=== PATIENT | female | born 1945 | race Caucasian/White ===

== ENCOUNTER → 2019-09-19 10:28 | Outpatient (BNVA) | payer MEDICARE, OTHER, SELFPAY | PROVIDERS: Visit Provider Nurse Practitioner Family | DX: D64.9 Anemia, unspecified (principal); E55.9 Vitamin D deficiency, unspecified; E78.2 Mixed hyperlipidemia; R53.83 Other fatigue; I10 Essential (primary) hypertension; Z79.899 Other long term (current) drug therapy; B37.3 Candidiasis of vulva and vagina | CPT/HCPCS: 80053; 80061; 81001; 82306; 83036; 83550; 84443; 85025 ==

== ENCOUNTER → 2020-10-02 11:28 | Outpatient (BNVA) | payer MEDICARE, OTHER, SELFPAY | PROVIDERS: PCP Nurse Practitioner Family; Visit Provider Nurse Practitioner Family | DX: E78.2 Mixed hyperlipidemia (principal); I10 Essential (primary) hypertension; E53.8 Deficiency of other specified B group vitamins; D64.9 Anemia, unspecified; M19.90 Unspecified osteoarthritis, unspecified site; E55.9 Vitamin D deficiency, unspecified; E03.9 Hypothyroidism, unspecified; Z79.899 Other long term (current) drug therapy | CPT/HCPCS: 80053; 80061; 81003; 82306; 82607; 82728; 83036; 83550; 83921; 84443; 85025; 85651; 86140; 86431 ==

== ENCOUNTER → 2021-03-16 10:59 | Outpatient (BNVA) | payer MEDICARE, OTHER, SELFPAY | PROVIDERS: PCP Nurse Practitioner Family; Visit Provider Nurse Practitioner Family | DX: D64.9 Anemia, unspecified (principal); E03.9 Hypothyroidism, unspecified; I10 Essential (primary) hypertension | CPT/HCPCS: 80053; 82607; 84443; 85025 ==

== ENCOUNTER 2021-05-18 08:32 | Outpatient (CLI) | payer MEDICARE, OTHER, SELFPAY ==
--- NOTE | 2021-05-18 09:19 | NMCV_ITS ---
NM nallely perf SPECT r/s* [id number] Irma August Age: 75 Gender: F : 1945 Exam Date: 05/18/2021 09:56 Ordering Phys: Rosalia Garcia MD ([email or web address]) Technologist: GODWIN Valdes Exam Location: [facility] Indications: SHORTNESS OF BREATH STRESS TEST [facility] IMAGE PROTOCOL Rest/Stress 1 Exercise Day Radiopharmaceutical Dose (mCi) Administration Site Administered by Rest: Tc-99m 10.6 IV GODWIN Valdes Sestamibi Stress:Tc-99m 32.7 IV GODWIN Hemphill Sestamibi Rest: 18-May-2021 60 Discovery 630 Stress: 18-May-2021 15 Discovery 630 Radiopharmaceutical was injected at 100% maximum heart rate. Images obtained in supine and prone position. SPECT RESULTS Technical Quality: Excellent Raw Data Analysis: Normal Image Corrections: No attenuation or motion correction applied Summed Stress Score: 0 Summed Rest Score: 0 Summed Difference Score: 0 PERFUSION FINDINGS Fairly uniform myocardial tracer uptake with no significant perfusion abnormality FUNCTIONAL RESULTS (calculated via Gated SPECT) Stress EDV (mL):34 TID: 0.55 FUNCTIONAL FINDINGS: Normal LV ejection fraction IMPRESSIONS 1. Unremarkable myocardial perfusion imaging 2. Normal LV ejection fraction 3. LV wall motion analysis revealing no gross wall motion abnormalities 4. Normal LV volume No significant coronary ischemia, based on the above findings Dr Rosalia Garcia MD [facility] (Electronically Signed) Final Date: 19 May 2021 00:32 S
--- NOTE | 2021-05-18 09:19 | ECG_ITS ---
[facility] Test Date: 2021-05-18 Pat Name: Irma August Department: Room: Gender: Female Sheet Writer: Geovanna Otero : 1945 Requested By: Rosalia Garcia Order Number: [id number] Bella MD: Rosalia Garcia M.D. Interpretive Statements NAME OF STUDY: EXERCISE SESTAMIBI STRESS TEST INDICATION: Chest Pain, PROCEDURE: The baseline electrocardiogram showed [normal sinus rhythm with nonspecific T wave changes. At the baseline, the patient's blood pressure was 167/92 mm Hg with a heart rate of 80/min The patient exercised for 4 minutes and 56 seconds on a standard Dwight protocol. Patient attained a maximum heart rate of 150 beats per minute(102 % of the maximum predicted heart rate) with a blood pressure at the peak exercise of 156/92 mm Hg. The EKG at the peak exercise revealed no significant changes. Patient did not have any chest pain or any significant arrhythmis with the exercise Sestamibi was injected 1 minute prior to the peak exercise During the recovery phase, there were no new changes. Blood pressure at the end of the recovery phase was 152/81 mm Hg with a heart rate of 89 per minute. CONCLUSION: 1. No significant EKG changes with the [treadmill exercise 2. No exercise-induced chest pain or cardiac arrhythmia 3. Impaired exercise tolerance, attained a maximum of 7.0 METs 4. Sestamibi/Sestamibi perfusion results pending; see separate report. Electronically Signed On 05-22-2021 10:36:42 AD OPERATIONS ASSOCIATE by Rosalia Garcia M.D. [id number]
[2021-05-18 09:20] VITALS: BMI 34.7
[2021-05-18 11:16] VITALS: BP 152/81; PULSE 89
--- NOTE | 2021-05-18 12:00 | USCV_ITS ---
Irma August Age: 75 Gender: F : 1945 Exam Date: 05/18/2021 09:24 Ordering Phys: Rosalia Garcia MD ([email or web address]) Technologist: Azul Lepe Exam Location: [facility] Indication: DYSPNEA BP: 121 / 85 HR: 70 Rhythm: Sinus Technical Quality: Technically difficult study MEASUREMENTS (Male / Female) Normal Values 2D ECHO LV Diastolic Diameter PLAX 3.0 cm 4.2 - 5.9 / 3.9 - 5.3 cm LV Systolic Diameter PLAX 2.0 cm IVS Diastolic Thickness 1.2 cm 0.6 - 1.0 / 0.6 - 0.9 cm IVS Systolic Thickness 1.7 cm LVPW Diastolic Thickness 1.1 cm 0.6 - 1.0 / 0.6 - 0.9 cm LVPW Systolic Thickness 1.3 cm LVOT Diameter 2.0 cm LV Ejection Fraction 2D Teich 62.4 % LV Ejection Fraction MOD 2C 52.5 % LV Ejection Fraction 2C AL 51.6 % LA Diameter 3.1 cm Aorta at Sinotubular Diameter 2.3 cm M-MODE Aortic Annulus Diameter 2.0 cm LA Ao Ratio MM 1.5 MV E Point Septal Separation 0.7 cm DOPPLER AV Peak Velocity 121.0 cm/s LVOT Peak Velocity 101.0 cm/s AV Area Cont Eq vti 2.6 cm squared AV Area Cont Eq pk 2.6 cm squared MV Area PHT 4.6 cm squared Mitral E to A Ratio 0.7 MV E' Velocity 37.0 cm/s Mitral E to MV E' Ratio 9.9 Mitral E to LV E' Lateral Ratio 13.7 Mitral E to LV E' Septal Ratio 7.8 TR Peak Velocity 327.0 cm/s TR Peak Gradient 42.8 mmHg TV Peak E Velocity 52.0 cm/s PV Peak Velocity 132.0 cm/s RV Acceleration Time 0.1 s RV Ejection Time 0.3 s RV AcT/ET 0.2 FINDINGS Left Ventricle Normal left ventricular size and systolic function, EF 62 %. Mild left ventricular hypertrophy. No regional wall motion abnormalities. Grade I/IV diastolic dysfunction (abnormal relaxation filling pattern), normal to mildly elevated filling pressures. Right Ventricle The right ventricle is normal in size and function. Right Atrium The right atrium is normal in size. Left Atrium The left atrium is normal in size. Mitral Valve Thickened mitral valve. Aortic Valve Thickened aortic valve. Tricuspid Valve No gross abnormalities noted Pulmonic Valve Pulmonic valve not well visualized. Pericardium Normal pericardium without effusion. Aorta Normal aortic annulus size. CONCLUSIONS Normal left ventricular size and systolic function, EF 62 %. Mild left ventricular hypertrophy. No regional wall motion abnormalities. Grade I/IV diastolic dysfunction (abnormal relaxation filling pattern), normal to mildly elevated filling pressures. Thickened aortic and mitral valve There is no pericardial effusion. There are no intracardiac masses. No previous study is available for comparison. Dr Rosalia Garcia MD [facility] (Electronically Signed) Final Date: 19 May 2021 00:20 S
== END 2021-05-18 08:33 | disposition home or self-care (01) ==
LOC: RAD 08:35 → CDL 09:19
PROVIDERS: PCP Nurse Practitioner Family; Visit Provider Internal Medicine Cardiovascular Disease
DX: R07.9 Chest pain, unspecified (principal); R06.00 Dyspnea, unspecified; I08.0 Rheumatic disorders of both mitral and aortic valves
CPT/HCPCS: 78452; 93017; 93306; A9500

== ENCOUNTER → 2021-08-11 10:13 | Outpatient (BNVA) | payer MEDICARE, SELFPAY | PROVIDERS: PCP Nurse Practitioner Family; Visit Provider Internal Medicine Cardiovascular Disease | DX: R06.02 Shortness of breath (principal); I12.9 Hypertensive chronic kidney disease with stage 1 through stage 4 chronic kidney disease, or unspecified chronic kidney disease; N18.9 Chronic kidney disease, unspecified; E78.2 Mixed hyperlipidemia | CPT/HCPCS: 80048; 80061; 80076; 84443; 85025; 99214 ==

== ENCOUNTER → 2021-08-18 11:58 | Outpatient (BNVA) | payer MEDICARE, SELFPAY | PROVIDERS: PCP Nurse Practitioner Family; Visit Provider Nurse Practitioner Family | DX: E55.9 Vitamin D deficiency, unspecified (principal); E53.8 Deficiency of other specified B group vitamins; D64.9 Anemia, unspecified; M19.90 Unspecified osteoarthritis, unspecified site; Z79.899 Other long term (current) drug therapy; E03.9 Hypothyroidism, unspecified | CPT/HCPCS: 81003; 82306; 82607; 82728; 83036; 83550; 83921; 85025; 85651; 86140 ==

== ENCOUNTER → 2021-08-25 09:57 | Outpatient (BNVA) | payer MEDICARE, SELFPAY | PROVIDERS: PCP Nurse Practitioner Family; Visit Provider Nurse Practitioner | DX: Z79.899 Other long term (current) drug therapy (principal) | CPT/HCPCS: 81003 ==

== ENCOUNTER → 2022-02-09 14:25 | Outpatient (BNVA) | payer MEDICARE, SELFPAY | PROVIDERS: PCP Nurse Practitioner; Visit Provider Nurse Practitioner Family | DX: I10 Essential (primary) hypertension (principal); E03.9 Hypothyroidism, unspecified; E78.2 Mixed hyperlipidemia | CPT/HCPCS: 36415; 84443; 99213; 99214 ==

== ENCOUNTER → 2022-08-10 13:45 | Outpatient (BNVA) | payer MEDICARE, SELFPAY | PROVIDERS: PCP Nurse Practitioner; Visit Provider Internal Medicine Cardiovascular Disease | DX: I49.8 Other specified cardiac arrhythmias (principal); I10 Essential (primary) hypertension; E03.9 Hypothyroidism, unspecified | CPT/HCPCS: 99214 ==

== ENCOUNTER → 2022-09-15 14:45 | Outpatient (BNVA) | payer MEDICARE, SELFPAY | PROVIDERS: PCP Nurse Practitioner; Referring Provider Nurse Practitioner; Visit Provider Obstetrics & Gynecology | DX: Z12.4 Encounter for screening for malignant neoplasm of cervix (principal) | CPT/HCPCS: 87624 ==

== ENCOUNTER → 2022-10-05 12:55 | Outpatient (BNVA) | payer MEDICARE, SELFPAY | PROVIDERS: PCP Nurse Practitioner; Visit Provider Obstetrics & Gynecology | DX: D25.9 Leiomyoma of uterus, unspecified (principal) | CPT/HCPCS: 76830 ==

== ENCOUNTER → 2023-03-22 09:07 | Outpatient (BNVA) | payer MEDICARE, SELFPAY | PROVIDERS: PCP Nurse Practitioner; Visit Provider Nurse Practitioner Family | DX: G56.01 Carpal tunnel syndrome, right upper limb (principal); M19.031 Primary osteoarthritis, right wrist; L90.0 Lichen sclerosus et atrophicus; E55.9 Vitamin D deficiency, unspecified; I10 Essential (primary) hypertension; Z79.899 Other long term (current) drug therapy; E03.9 Hypothyroidism, unspecified; D64.9 Anemia, unspecified; E53.8 Deficiency of other specified B group vitamins; Z29.11 Encounter for prophylactic immunotherapy for respiratory syncytial virus (RSV) | CPT/HCPCS: 73110; 80053; 80061; 81003; 82306; 82607; 82746; 83036; 84443; 85025 ==

== ENCOUNTER → 2023-05-31 10:22 | Outpatient (BNVA) | payer MEDICARE, SELFPAY | PROVIDERS: PCP Nurse Practitioner; Visit Provider Student in an Organized Health Care Education/Training Program | DX: G56.01 Carpal tunnel syndrome, right upper limb; M18.11 Unilateral primary osteoarthritis of first carpometacarpal joint, right hand; Z46.89 Encounter for fitting and adjustment of other specified devices; M25.541 Pain in joints of right hand; G56.00 Carpal tunnel syndrome, unspecified upper limb | CPT/HCPCS: 20600; 73130; 97760; 99204; J3301; J3490; L3924 ==

== ENCOUNTER 2023-05-31 11:39 | Outpatient (CLI) | payer MEDICARE, SELFPAY | END 2023-05-31 11:40 | disposition home or self-care (01) | LOC: SPT 11:40 | PROVIDERS: PCP Nurse Practitioner; Visit Provider Student in an Organized Health Care Education/Training Program | DX: Z46.89 Encounter for fitting and adjustment of other specified devices (principal); M25.541 Pain in joints of right hand; G56.00 Carpal tunnel syndrome, unspecified upper limb | CPT/HCPCS: 20600; 97760; 99204; J3301; J3490; L3924 ==

== ENCOUNTER → 2023-06-17 13:46 | Outpatient (BNVA) | payer MEDICARE, SELFPAY | PROVIDERS: PCP Nurse Practitioner Family; Visit Provider Specialist | DX: G56.01 Carpal tunnel syndrome, right upper limb (principal); M18.11 Unilateral primary osteoarthritis of first carpometacarpal joint, right hand | CPT/HCPCS: 95912 ==

== ENCOUNTER → 2023-07-07 08:31 | Outpatient (BNVA) | payer MEDICARE, SELFPAY | PROVIDERS: PCP Nurse Practitioner Family; Visit Provider Student in an Organized Health Care Education/Training Program | DX: G56.01 Carpal tunnel syndrome, right upper limb (principal); M18.11 Unilateral primary osteoarthritis of first carpometacarpal joint, right hand; M19.031 Primary osteoarthritis, right wrist | CPT/HCPCS: 99214 ==

== ENCOUNTER → 2023-07-26 13:31 | Outpatient (BNVA) | payer MEDICARE, SELFPAY | PROVIDERS: PCP Nurse Practitioner Family; Visit Provider Internal Medicine Cardiovascular Disease | DX: I49.8 Other specified cardiac arrhythmias (principal); I10 Essential (primary) hypertension; E78.2 Mixed hyperlipidemia; E03.9 Hypothyroidism, unspecified | CPT/HCPCS: 99213 ==

== ENCOUNTER 2023-08-24 06:02 | Day surgery (SDC) | payer MEDICARE, SELFPAY ==
[2023-08-24] VITALS (7 sets, daily range): BP systolic 114–142; BP diastolic 61–89; PULSE 65–78; RESP 16–18; TEMP 36.2–36.4; O2SAT 97–99
--- NOTE | 2023-08-24 06:31 | P.ANESASSM_ITS ---
Pre-Anesthetic Assessment Height/Weight: Height 1.52 m Weight 87.09 kg Temp Pulse Resp BP Pulse Ox O2 Del Method 97.5 F L 70 16 142/89 98 Room Air 08/24/23 06:24 08/24/23 06:24 08/24/23 06:24 08/24/23 06:24 08/24/23 06:24 08/24/23 06:24 Operation Date: 08/24/23 08:00 Proposed Procedures p Carpal Tunnel Release(Right) - Cesar Stanislaus, DO Familial anesthetic complications: none Was Beta Farideh taken within 24 hours: N/A Was Clonidine taken within 24 hours: N/A Last intake: Intake Last Liquid Date 08/23/23 Last Liquid Time 20:00 Last Solid Date 08/23/23 Last Solid Time 19:00 Social No alcohol and No tobacco Exam alert, oriented x 3, clear to auscultation bilaterally and regular rate & rhythm Airway Mallampati: Class I Dentition: other (bridge) CV/HEM Hypertension and Palpitations Metabolic Thyroid Disease Anesthetic Plan ASA status: 3 Anesthesia: MAC Risk of > 500 ml blood loss (7ml/kg in children): No Medications/Allergies Home Medications Medication Instructions Recorded Confirmed Last Taken Type cholecalciferol (vitamin D3) 100 100 mcg PO DAILY 10/02/20 08/24/23 08/23/23 History mcg (4,000 unit) capsule fluticasone propionate 50 1 spray intranasal DAILY 90 days 10/02/20 08/24/23 08/23/23 Rx mcg/actuation nasal #18.2 mL spray,suspension (Allergy Relief (fluticasone)) diclofenac sodium 1 % topical gel 2 g topical QID 08/18/21 08/24/23 08/23/23 History (Arthritis Pain (diclofenac)) hydrocortisone 2.5 % topical cream 1 applic topical TID PRN skin 06/01/22 08/24/23 08/23/23 Rx irritation #28 grams loratadine 10 mg tablet 10 mg PO DAILY 10/19/22 08/24/23 08/23/23 History mometasone 0.1 % topical cream 1 applic topical BID #45 grams 01/09/23 08/24/23 08/23/23 Rx amlodipine 2.5 mg tablet 2.5 mg PO DAILY HTN #90 tabs 01/31/23 08/24/2324 Rx levothyroxine 112 mcg tablet 112 mcg PO DAILY #90 tabs 01/31/23 08/24/23 08/24/23 Rx (Euthyrox) arm brace #1 ea 03/22/23 07/26/23 08/23/23 Rx losartan 100 mg tablet 100 mg PO DAILY #90 tabs 03/31/23 08/24/23 08/23/23 Rx cmc brace #1 ea 05/31/23 07/26/23 08/23/23 Rx Allergies Allergy/AdvReac Type Severity Reaction Status Date / Time hydrocodone [From Vicodin] AdvReac ITCHING Verified 08/23/23 09:50 [facility] Anesthesia Medical History Postmenopausal bleeding Ulnar fracture Thoracic back pain Need for RSV vaccination Arthritis of wrist, right Carpal tunnel syndrome of right wrist Palpitations Abnormal EKG Periodic heart flutter Fluttering heart Arthritis Anemia Vitamin B 12 deficiency Anemia Medication management Essential hypertension Hypothyroidism (acquired) Hypertension Surgical History Status post eye surgery Family History Grandmother Cancer CAD (coronary artery disease) [place] Brother CAD (coronary artery disease) Family/Other CAD (coronary artery disease) Cancer Sister CAD (coronary artery disease) multiple sisters with FL's in their 50's, 1 sister had triple bypass Diabetes Stroke Grandfather CAD (coronary artery disease), Onset Age: 55 [place] while driving Mother Dementia Denies family history of Clotting disorder Chronic kidney disease (CKD) Suicide Anesthesia complication Bleeding disorder Lung disease Social History Smoking and tobacco/nicotine status: never used tobacco/nicotine Alcohol intake: former Substance/Drug Use: never Data Anesthesia Cardiac Studies: Echocardiogram 05/18/21 Sestamibi Stress Test (Cardiology) 05/18
[2023-08-24] MEDS: sodium chloride 0.9% 1,000 ML 30 ML IV (06:35)
[2023-08-24] MEDS: acetaminophen 1,000 MG/100 ML PIGGYBACK 400 MG IV (06:37)
[2023-08-24] MEDS: ketorolac 30 mg/mL INJ IVP (06:40)
[2023-08-24] MEDS: scopolamine 1.5 Patch 1 PATCH TRANSDERMA (06:40)
--- NOTE | 2023-08-24 07:53 | W.PM.OPSFHP ---
Same Day Surgery H&P Indication for Procedure/HPI DATE OF PROCEDURE: August 24, 2023 CHIEF COMPLAINT/INDICATIONFOR SURGICAL PROCEDURE: Right carpal tunnel syndrome PREOP DIAGNOSIS: Right carpal tunnel syndrome PLANNED PROCEDURE: Operation Date: 08/24/23 08:00 Proposed Procedures p Carpal Tunnel Release(Right) - eCsar Leung DO Medications/Allergies* Home Medications Medication Instructions Recorded Confirmed Type cholecalciferol (vitamin D3) 100 100 mcg PO DAILY 10/02/20 08/24/23 History mcg (4,000 unit) capsule diclofenac sodium 1 % topical gel 2 g topical QID 08/18/21 08/24/23 History (Arthritis Pain (diclofenac)) loratadine 10 mg tablet 10 mg PO DAILY 10/19/22 08/24/23 History Allergies/Adverse Reactions Allergy/AdvReac Type Severity Reaction Status Date / Time hydrocodone [From Vicodin] AdvReac ITCHING Verified 08/23/23 09:50 Current Medications: Generic Name Dose Route Start Last Admin Trade Name Freq PRN Reason Stop Dose Admin Sodium Chloride 1,000 mls @ 30 mls/hr 08/24/23 06:15 08/24/23 06:35 Sodium Chloride 0.9% IV 08/25/23 06:14 30 mls/hr .Q24H ELIZABETH Administration Pertinent History/Comorbid Conditions* Medical History (Updated 05/31/23 @ 18:10 by Cesar Leung DO) Postmenopausal bleeding Ulnar fracture Thoracic back pain Need for RSV vaccination Arthritis of wrist, right Carpal tunnel syndrome of right wrist Palpitations Abnormal EKG Periodic heart flutter Fluttering heart Arthritis Anemia Vitamin B 12 deficiency Anemia Medication management Essential hypertension Hypothyroidism (acquired) Hypertension Surgical History (Updated 08/20/19 @ 16:19 by NAZIA Stover) Status post eye surgery Family History (Updated 03/31/21 @ 11:04 by Isamar Jordan RN) Grandfather Grandmother Diabetes Sister CAD (coronary artery disease) Grandmother [place] Brother Family/Other Sister multiple sisters with VT's in their 50's, 1 sister had triple bypass Grandfather, Onset Age: 55 [place] while driving Dementia Mother Cancer Grandmother Family/Other Stroke Sister Denies family history of Clotting disorder Chronic kidney disease (CKD) Suicide Anesthesia complication Bleeding disorder Lung disease Social History Smoking and tobacco/nicotine status: never used tobacco/nicotine Alcohol intake: former Substance/Drug Use: never Pertinent Exam Findings alert, oriented x 3, operative site marked and procedure specific exam findings Please refer to last office note on 07/07/2023 for full orthopedic examination which included: right upper extremity No pain with C-spine range of motion. Negative Spurling's. Negative Tinel's at the shoulder. Negative Tinel's at the elbow. Positive median nerve compression test. Mild Tinel's over the wrist. Positive Phalen's. Pain over the first dorsal compartment. Positive CMC grind test as well as tenderness to palpation over the right thumb basal joint. Mild ulnar-sided tenderness to palpation over the TFCC. Good thenar strength and no atrophy. No intrinsic atrophy. Recommendations Surgery/Procedure today Other Plans: Plan to proceed to the OR today for right carpal tunnel release. Patient understands risk benefits complication alternatives of surgery and through shared decision-making elects proceed with surgical intervention today all questions answered. Coding Level of Care Code Acute Code for Gudelia Fwjimmie
[2023-08-24] MEDS: ceFAZolin 2,000 MG in sodium chloride 0.9% (plus) 50 ML 100 MG IV (07:56)
[2023-08-24] MEDS: ROPivacaine 0.5% SDV 30 mL 25 MG INJECTION (08:30)
[2023-08-24] MEDS: lidocaine-epi 1% 20 mL INJ 5 ML INJECTION (08:30)
--- NOTE | 2023-08-24 08:31 | PM.OP ---
Operative Report Date of procedure: August 24, 2023 Surgeon: Cesar Leung DO Operations Research Director: Emil Leung PA-C: PA was necessary for assistance in this case with hand positioning to execute the procedure, retraction and protection of neurovascular structures as well as to assist with wound closure and dressing application. Procedure: Preoperative diagnosis: Right carpal tunnel syndrome Post-op diagnosis: Same Procedure done: 1.?Right carpal tunnel?release Surgeon: Cesar Leung DO Anesthesia: MAC (Local) Estimated blood loss: 1 mL Tourniquet time 8 minutes IV fluids: See anesthesia?record Complications: None Findings: See operative?report narrative Condition: stable Disposition: same day Brief History: Patient is a pleasant 77 year-old female with?right carpal tunnel syndrome.? Patient has been worked up in the outpatient setting findings and physical examination consistent with this.? Patient nerve conduction studies consistent with carpal tunnel syndrome.? We detailed out patient's?risk benefits complication alternatives with surgical and nonsurgical treatment options. Through shared decision making, patient agrees to proceed with surgical intervention of the left carpal tunnel?release .? Patient understands and agrees with current plan.? All questions answered.? Patient elects to proceed with surgical intervention with carpal tunnel?release. Procedure: Patient seen and evaluated in the preoperative holding area.? Consent was?reviewed and signed with patient.? Correct extremity was marked.? Patient was seen evaluated by the anesthesia department once cleared for surgery was brought back to the operative suite.? Patient was kept on [facility] in supine position all bony prominences were well-padded patient properly secured to the bed.??Right upper extremity was then placed onto an armboard.? A nonsterile tourniquet was applied to the?Right upper arm.? Patient underwent anesthesia per the anesthesia department.? Patient's?Right upper extremity was then prepped and draped in standard orthopedic fashion.? Final timeout performed.? Patient?received appropriate preoperative antibiotics. Under sterile aseptic technique patient?received local anesthesia over the preplanned carpal tunnel incision site. Esmarch was used to exsanguinate the?Right upper extremity and tourniquet was insufflated to 250 mmHg. A standard mini open?Right carpal tunnel incision was made.? Starting distally at Martinez's cardinal line in line with the fourth?ray extending proximally distal to the wrist crease centered over the carpal tunnel.? Sharp scalpel incision was made through skin and subcutaneous tissue.? Self-retaining?retractor was placed and the palmar fascia was identified.? This was then split longitudinally and direct visualization of the transverse carpal ligament was then made.? I then utilizing scalpel feathered through the transverse carpal ligament until I entered the floor of the transverse carpal tunnel ligament into the carpal tunnel.? Next I switched to dissection scissors and completed my?release of the transverse carpal ligament distally with care to protect the?recurrent motor branch.? I completely?released into the palmar fat and until no entrapment was noted distally.? Care was made to protect the superficial palmar arch during my distal dissection.?? Next I utilized a nasal speculum placed on top of the transverse carpal ligament and utilize this to?retract the subcutaneous fat and tissue and under direct loupe magnification was able to identify the transverse carpal ligament.? Next I then placed a Climax underneath the transverse carpal tunnel ligament to protect the contents of the carpal tunnel and subsequently utilizing dissection scissors under loupe magnification completely?released the transverse carpal ligament proximally into the median antebrachial fascia.? Care was made to protect the palmar cutaneous branch by keeping my scissors curved ulnarly.? Once completely?released, I then placed my Climax and had appropriate decompression of the carpal tunnel proximally as well as distally.? I then inspected the contents of the carpal tunnel which showed an hourglass shape of the median nerve showing its compression.? No masses were noted.? Tendons appeared healthy.? Wound was then thoroughly irrigated.? Tourniquet deflated.? Hemostasis satisfactory with bipolar electrocautery.? I then closed the incision with interrupted nylon stitches.? Xeroform 4 x 4's and a bulky soft dressing was applied.? Patient was then awakened from anesthesia and taken to PACU in stable condition.? Patient tolerated procedure without complications. Disposition: Patient taken to PACU in stable condition?recovering well.? Dressing clean dry and intact.? Patient will?receive appropriate discharge instructions as well as pain medication postoperatively.? Patient to follow-up with me in the office in 2 weeks.? They understand they may be weightbearing as tolerated to the?right hand.? Patient should keep incision clean dry and intact.? Patient understands if any questions or concerns may contact the office.
--- NOTE | 2023-08-24 08:39 | P.BOP_ITS ---
Date of Procedure: [August 24, 2023] Surgeon: [Dr. Madhu DO ] Insurance Territory Manager(s): [Emil Leung PA-C] Procedure(s) performed: [Right carpal tunnel release] Findings of the procedure(s): [Right carpal tunnel syndrome] Estimated blood loss: [1 mL] Specimen(s) removed: [N/A] Post-operative diagnosis: [Right carpal tunnel syndrome]
--- NOTE | 2023-08-24 08:41 | P.PCN_ITS ---
PACU note Narrative: Patient is a 77-year-old female just underwent a right carpal tunnel release. Patient transferred to PACU in stable condition. Pain is well controlled. Dressing on hand is dry and in place. Patient's fingers are warm and well- perfused. Patient can wiggle fingers. normal cap refill under 2 seconds. Patient has normal elbow range of motion. Unable to assess sensation due to residual localized anesthetic. Exam: awake Disposition: discharged
--- NOTE | 2023-08-24 09:40 | ANE.PACU2 ---
Inpatient post-anesthesia follow up: Airway intact: Yes Vital signs: Temperature 97.2 F Pulse Rate 65 Respiratory Rate 16 Blood Pressure 139/75 Pulse Oximetry 99 Oxygen Delivery Me thod Room Air Oxygen Flow Rate 6 Fraction of Inspir ed Oxygen Hydration adequate: Yes Nausea and vomiting: No Pain level: 1 Mental status: Baseline
== END 2023-08-24 09:43 | disposition home or self-care (01) ==
PROVIDERS: PCP Nurse Practitioner Family; Visit Provider Student in an Organized Health Care Education/Training Program
PROC: (CPT 64721; principal; 2023-08-24 07:50)
DX: G56.01 Carpal tunnel syndrome, right upper limb (principal); I10 Essential (primary) hypertension; E03.9 Hypothyroidism, unspecified
CPT/HCPCS: 64721; J0131; J0690; J1885; J2704; J2795; J3010; J7030

== ENCOUNTER → 2023-09-13 13:10 | Outpatient (BNVA) | payer MEDICARE, SELFPAY | PROVIDERS: PCP Nurse Practitioner Family; Visit Provider Student in an Organized Health Care Education/Training Program | DX: Z98.890 Other specified postprocedural states (principal) | CPT/HCPCS: 99024; 99213 ==

== ENCOUNTER → 2023-12-13 10:17 | Outpatient (BNVA) | payer MEDICARE, SELFPAY | PROVIDERS: PCP Nurse Practitioner Family; Visit Provider Student in an Organized Health Care Education/Training Program | DX: G56.02 Carpal tunnel syndrome, left upper limb (principal); M18.12 Unilateral primary osteoarthritis of first carpometacarpal joint, left hand | CPT/HCPCS: 73130 ==

== ENCOUNTER 2023-12-13 15:02 | Outpatient (CLI) | payer MEDICARE, SELFPAY | END 2023-12-13 15:03 | disposition home or self-care (01) | LOC: SPT 15:03 | PROVIDERS: PCP Nurse Practitioner Family; Visit Provider Student in an Organized Health Care Education/Training Program | DX: Z46.89 Encounter for fitting and adjustment of other specified devices (principal); M18.12 Unilateral primary osteoarthritis of first carpometacarpal joint, left hand | CPT/HCPCS: 97760; L3924 ==

== ENCOUNTER 2024-01-11 05:33 | Day surgery (SDC) | payer MEDICARE, SELFPAY ==
--- NOTE | 2024-01-11 06:11 | W.PM.OPSUD ---
Surgery/Procedure H&P Update DATE OF PROCEDURE: January 11, 2024 DATE H&P PERFORMED: 12/13/23 H&P UPDATE INFORMATION: I have reviewed H&P completed within last 30 days, I have examined patient prior to procedure and No changes to prior documentation PREOP DIAGNOSIS: Left carpal tunnel syndrome PRIMARY INDICATION FOR PROCEDURE: Left carpal tunnel syndrome PLANNED PROCEDURE: Operation Date: 01/11/24 07:00 Proposed Procedures p Carpal Tunnel Release(Left) - Cesar Leung DO
[2024-01-11 06:15] VITALS: BP 160/91; PULSE 65; RESP 18; TEMP 36.1; O2SAT 98; BMI 38.7
--- NOTE | 2024-01-11 06:22 | ANES.PREANE2 ---
Pre-Anesthetic Assessment Height/Weight: Height 4 ft 11 in Weight 192 lb Temp Pulse Resp BP Pulse Ox O2 Del Method 97.0 F L 65 18 160/91 98 Room Air 01/11/24 06:15 01/11/24 06:15 01/11/24 06:15 01/11/24 06:15 01/11/24 06:15 01/11/24 06:15 Preop Diagnosis: Left carpal tunnel syndrome Operation Date: 01/11/24 07:00 Proposed Procedures p Carpal Tunnel Release(Left) - Cesar Leung DO Last intake: Intake Last Liquid Date 01/10/24 Last Liquid Time 20:00 Last Solid Date 01/10/24 Last Solid Time 19:00 Exam alert, oriented x 3, clear to auscultation bilaterally and regular rate & rhythm Airway Submandibular: within normal limits Cervical ROM: within normal limits Mallampati: Class III Dentition: full Metabolic Hypothyroidism Anesthetic Plan Other: Patient has no prior issues with anesthesia Patient had previous carpal done in August 2019 for under MAC anesthesia without complications NPO since midnight METs greater than 4 Labs reviewed and acceptable for surgery EKG normal sinus rhythm HTN, took amlodipine and losartan yesterday morning Echo 2020 showing EF 62% Plan for MAC anesthesia today Medications/Allergies Home Medications Medication Instructions Recorded Confirmed Last Taken Type cholecalciferol (vitamin D3) 100 100 mcg PO DAILY 10/02/20 01/10/24 01/10/24 History mcg (4,000 unit) capsule fluticasone propionate 50 1 spray intranasal DAILY 90 days 10/02/20 01/10/24 08/23/23 Rx mcg/actuation nasal #18.2 mL spray,suspension (Allergy Relief (fluticasone)) diclofenac sodium 1 % topical gel 2 g topical QID 08/18/21 01/10/24 01/10/24 History (Arthritis Pain (diclofenac)) hydrocortisone 2.5 % topical cream 1 applic topical TID PRN skin 06/01/22 01/10/24 08/23/23 Rx irritation #28 grams loratadine 10 mg tablet 10 mg PO DAILY 10/19/22 01/10/24 01/10/24 History mometasone 0.1 % topical cream 1 applic topical BID #45 grams 01/09/23 01/10/24 08/23/23 Rx amlodipine 2.5 mg tablet 2.5 mg PO DAILY HTN #90 tabs 01/31/23 01/10/24 01/10/24 Rx levothyroxine 112 mcg tablet 112 mcg PO DAILY #90 tabs 01/31/23 01/10/24 01/10/24 Rx (Euthyrox) arm brace #1 ea 03/22/23 12/13/23 08/23/23 Rx losartan 100 mg tablet 100 mg PO DAILY #90 tabs 03/31/23 01/10/24 01/10/24 Rx cmc brace #1 ea 05/31/23 12/13/23 08/23/23 Rx tramadol 50 mg tablet 50 mg PO Q6H PRN pain #20 tabs 08/24/23 01/10/24 Unknown Rx Left CMC joint brace #1 ea 12/13/23 12/13/23 Unknown Rx Allergies Allergy/AdvReac Type Severity Reaction Status Date / Time codeine Allergy ADR-Itching Verified 01/10/24 13:39 PFSH Anesthesia Medical History Postmenopausal bleeding Ulnar fracture Thoracic back pain Need for RSV vaccination Arthritis of wrist, right Carpal tunnel syndrome of right wrist Palpitations Abnormal EKG Periodic heart flutter Fluttering heart Arthritis Anemia Vitamin B 12 deficiency Anemia Medication management Essential hypertension Hypothyroidism (acquired) Hypertension Surgical History Status post eye surgery Family History Grandmother Cancer CAD (coronary artery disease) [place] Brother CAD (coronary artery disease) Family/Other CAD (coronary artery disease) Cancer Sister CAD (coronary artery disease) multiple sisters with GA's in their 50's, 1 sister had triple bypass Diabetes Stroke Grandfather CAD (coronary artery disease), Onset Age: 55 [place] while driving Mother Dementia Denies family history of Clotting disorder Chronic kidney disease (CKD) Suicide Anesthesia complication Bleeding disorder Lung disease Social History Smoking and tobacco/nicotine status: never used tobacco/nicotine Alcohol intake: former Substance/Drug Use: never Data Anesthesia Cardiac Studies: Echocardiogram 05/18/21 Sestamibi Stress Test (Cardiology) 05/18/21
[2024-01-11] MEDS: acetaminophen 1,000 MG/100 ML PIGGYBACK 400 MG IV (06:28)
[2024-01-11] MEDS: ketorolac 30 mg/mL INJ IVP (06:31)
[2024-01-11] MEDS: sodium chloride 0.9% 1,000 ML 30 ML IV (06:31)
[2024-01-11] MEDS: ceFAZolin 2,000 MG in sodium chloride 0.9% (plus) 50 ML 100 MG IV (06:45)
[2024-01-11] MEDS: lidocaine-epi 1% PF 1:200,000 30 mL SDV INJECTION (06:50)
[2024-01-11] MEDS: ROPivacaine 0.5% SDV 30 mL 150 MG INJECTION (06:50)
--- NOTE | 2024-01-11 07:09 | W.PM.BPON ---
Date of Procedure: 01/11/2024 Surgeon: Cesar Leung DO Office Associate(s): None Procedure(s) performed: Left carpal tunnel release Findings of the procedure(s): Patient found to have left carpal tunnel syndrome underwent procedure as planned without issues or complication Estimated blood loss: 1 mL Specimen(s) removed: None Post-operative diagnosis: Left carpal tunnel release
--- NOTE | 2024-01-11 07:10 | P.OP_ITS ---
Operative Report Date of procedure: January 11, 2024 Surgeon: Cesar Leung DO Procedure: Preop Diagnosis: Left Carpal Tunnel Syndrome Post-op diagnosis: Same Procedure done: 1. Left carpal tunnel release Surgeon: Cesar Leung DO Anesthesia: MAC (Local) Estimated blood loss: 1 mL Tourniquet time 4 minutes IV fluids: See anesthesia record Complications: None Findings: See operative report narrative Condition: stable Disposition: same day Brief History: Patient is a pleasant 78 year-old female with left carpal tunnel syndrome. Patient has been worked up in the outpatient setting findings and physical examination consistent with this. Patient had a right carpal tunnel release surgery which had excellent response to surgical intervention and wishing to proceed with surgical intervention for left carpal tunnel syndrome. We detailed out patient's risk benefits complication alternatives with surgical and nonsurgical treatment options. Through shared decision making, patient agrees to proceed with surgical intervention of the left carpal tunnel release . Patient understands and agrees with current plan. All questions answered. Patient elects to proceed with surgical intervention with carpal tunnel release. Procedure: Patient seen and evaluated in the preoperative holding area. Consent was reviewed and signed with patient. Correct extremity was marked. Patient was seen evaluated by the anesthesia department once cleared for surgery was brought back to the operative suite. [facility] in supine position all bony prominences were well-padded patient properly secured to the bed. Left upper extremity was then placed onto an armboard. A nonsterile tourniquet was applied to the left upper arm. Patient underwent anesthesia per the anesthesia department. Patient's left upper extremity was then prepped and draped in standard orthopedic fashion. Final timeout performed. Patient received appropriate preoperative antibiotics. Under sterile aseptic technique patient received local anesthesia over the preplanned carpal tunnel incision site. Esmarch was used to exsanguinate the left upper extremity and tourniquet was insufflated to 250 mmHg. A standard mini open left carpal tunnel incision was made. Starting distally at Martinez's cardinal line in line with the fourth ray extending proximally distal to the wrist crease centered over the carpal tunnel. Sharp scalpel incision was made through skin and subcutaneous tissue. Self-retaining retractor was placed and the palmar fascia was identified. This was then split longitudinally and direct visualization of the transverse carpal ligament was then made. I then utilizing scalpel feathered through the transverse carpal ligament until I entered the floor of the transverse carpal tunnel ligament into the carpal tunnel. Next I switched to dissection scissors and completed my release of the transverse carpal ligament distally with care to protect the recurrent motor branch. I completely released into the palmar fat and until no entrapment was noted distally. Care was made to protect the superficial palmar arch during my distal dissection. Next, nasal speculum placed proximally for retraction of soft tissue on top of the Transverse carpal ligament. Next the contents of the carpal tunnel where protected and and subsequently utilizing dissection scissors under loupe magnification completely released the transverse carpal ligament proximally into the antebrachial fascia. Care was made to protect the palmar cutaneous branch by keeping my scissors curved ulnarly. Once completely released, I then placed my [place] and had appropriate decompression of the carpal tunnel proximally as well as distally. I then inspected the contents of the carpal tunnel which showed an hourglass shape of the median nerve showing its compression. No masses were noted. Tendons appeared healthy. Wound was then thoroughly irrigated. Tourniquet deflated. Hemostasis satisfactory with bipolar electrocautery. I then closed the incision with interrupted nylon stitches. Xeroform 4 x 4's and a bulky soft dressing was applied to the left upper extremity. Patient was then awakened from anesthesia and taken to PACU in stable condition. Patient tolerated procedure without complications. Disposition: Patient taken to PACU in stable condition recovering well. Dressing clean dry and intact. Patient will receive appropriate discharge instructions as well as pain medication postoperatively. Patient to follow-up with me in the office in 2 weeks. They understand they may be weightbearing as tolerated to the left hand. Patient should keep incision clean dry and intact. Patient understands if any questions or concerns may contact the office.
[2024-01-11 07:16] VITALS: BP 134/68; PULSE 67; RESP 16; TEMP 36.2; O2SAT 96
[2024-01-11 07:20] VITALS: BP 137/70; PULSE 66; RESP 16; O2SAT 94
--- NOTE | 2024-01-11 07:24 | SUR.PHASEI ---
ROM ,SENSATION AND CAP REFILL OF FINGERS OF LEFT HAND.
[2024-01-11 07:26] VITALS: BP 142/72; PULSE 66; RESP 16; TEMP 36.4; O2SAT 95
[2024-01-11 07:34] VITALS: BP 140/77; PULSE 64; RESP 17; TEMP 36.4; O2SAT 100
[2024-01-11 07:45] VITALS: BP 149/73; PULSE 70; RESP 18; O2SAT 99
--- NOTE | 2024-01-11 08:30 | ANE.PACU2 ---
Inpatient post-anesthesia follow up: Airway intact: Yes Vital signs: Temperature 97.5 F Pulse Rate 70 Respiratory Rate 18 Blood Pressure 149/73 Pulse Oximetry 99 Oxygen Delivery Me thod Room Air Oxygen Flow Rate Fraction of Inspir ed Oxygen Hydration adequate: Yes Nausea and vomiting: No Pain level: 2 Mental status: Baseline
== END 2024-01-11 08:30 | disposition home or self-care (01) ==
PROVIDERS: PCP Nurse Practitioner Family; Visit Provider Student in an Organized Health Care Education/Training Program
PROC: (CPT 64721; principal; 2024-01-11 07:00)
DX: G56.02 Carpal tunnel syndrome, left upper limb (principal); E03.9 Hypothyroidism, unspecified; I10 Essential (primary) hypertension
CPT/HCPCS: 64721; J0131; J0690; J1885; J2704; J2795; J7030

== ENCOUNTER → 2024-01-24 09:00 | Outpatient (BNVA) | payer MEDICARE, SELFPAY | PROVIDERS: PCP Nurse Practitioner Family; Visit Provider Physician Assistant | DX: Z98.890 Other specified postprocedural states (principal) | CPT/HCPCS: 99024 ==

== ENCOUNTER → 2024-03-22 08:58 | Outpatient (BNVA) | payer MEDICARE, SELFPAY | PROVIDERS: PCP Nurse Practitioner Family; Visit Provider Nurse Practitioner Family | DX: I10 Essential (primary) hypertension (principal); Z79.899 Other long term (current) drug therapy; E78.2 Mixed hyperlipidemia; E03.9 Hypothyroidism, unspecified; E55.9 Vitamin D deficiency, unspecified; E53.8 Deficiency of other specified B group vitamins; D64.9 Anemia, unspecified; L90.0 Lichen sclerosus et atrophicus | CPT/HCPCS: 80053; 80061; 81003; 82306; 82607; 82728; 82746; 83036; 83550; 84443; 85025; 87086 ==

== ENCOUNTER → 2024-05-29 16:54 | Outpatient (BNVA) | payer MEDICARE, SELFPAY | PROVIDERS: PCP Nurse Practitioner Family; Visit Provider Nurse Practitioner Family | DX: J18.9 Pneumonia, unspecified organism; I70.90 Unspecified atherosclerosis | CPT/HCPCS: 71046 ==

== ENCOUNTER → 2024-08-06 09:11 | Outpatient (BNVA) | payer MEDICARE, SELFPAY | PROVIDERS: PCP Nurse Practitioner Family; Visit Provider Nurse Practitioner Family | DX: M25.50 Pain in unspecified joint (principal); E53.8 Deficiency of other specified B group vitamins; M00.111 Pneumococcal arthritis, right shoulder; L90.0 Lichen sclerosus et atrophicus; D64.9 Anemia, unspecified | CPT/HCPCS: 80053; 82306; 82607; 83921; 85651; 86038; 86140; 86200; 86431 ==

== ENCOUNTER → 2024-08-07 08:54 | Outpatient (BNVA) | payer MEDICARE, SELFPAY | PROVIDERS: PCP Nurse Practitioner Family; Visit Provider Nurse Practitioner Family | DX: M19.90 Unspecified osteoarthritis, unspecified site (principal); M25.511 Pain in right shoulder | CPT/HCPCS: 73030; 73060 ==

== ENCOUNTER → 2024-08-21 13:48 | Outpatient (BNVA) | payer MEDICARE, SELFPAY | PROVIDERS: PCP Nurse Practitioner Family; Visit Provider Student in an Organized Health Care Education/Training Program | DX: M75.41 Impingement syndrome of right shoulder (principal) | CPT/HCPCS: 20610; 99214; J3301; J9999 ==

== ENCOUNTER → 2024-08-29 08:45 | Outpatient (BNVA) | payer MEDICARE, SELFPAY | PROVIDERS: PCP Nurse Practitioner Family; Visit Provider Student in an Organized Health Care Education/Training Program | DX: M65.311 Trigger thumb, right thumb (principal); M18.11 Unilateral primary osteoarthritis of first carpometacarpal joint, right hand; M19.011 Primary osteoarthritis, right shoulder | CPT/HCPCS: 20600; 73130; 99214; J3301; J3490 ==

== ENCOUNTER → 2024-11-20 10:37 | Outpatient (BNVA) | payer MEDICARE, SELFPAY | PROVIDERS: PCP Nurse Practitioner Family; Visit Provider Student in an Organized Health Care Education/Training Program | DX: M75.41 Impingement syndrome of right shoulder (principal) | CPT/HCPCS: 20610; 99213; J3301; J9999 ==

== ENCOUNTER 2025-02-14 07:23 | Outpatient (CLI) | payer MEDICARE, SELFPAY ==
--- NOTE | 2025-02-14 07:45 | USCV_ITS ---
Irma August Age: 79 Gender: F : 1945 Exam Date: 02/14/2025 07:52 Ordering Phys: ELIZABETH Turner APRN Technologist: ELENITA [place] [facility] [place]: Endocarditis BP: 181 / 83 HR: 67 Rhythm: Sinus Technical Quality: Adequate MEASUREMENTS (Male / Female) Normal Values 2D ECHO LV Diastolic Diameter PLAX 4.8 cm 4.2 - 5.9 / 3.9 - 5.3 cm IVS Diastolic Thickness 0.7 cm 0.6 - 1.0 / 0.6 - 0.9 cm IVS Systolic Thickness 1.1 cm LVPW Systolic Thickness 1.4 cm LVOT Diameter 2.0 cm LV Ejection Fraction 2D Teich 68.1 % LV Ejection Fraction MOD 4C 70.1 % LV Ejection Fraction MOD 2C 59.4 % LV Ejection Fraction 2C AL 61.4 % LA Diameter 3.3 cm RA Systolic Volume 4C AL 43.2 ml RA Systolic Volume 4C MOD 38.1 ml LA Sys Volume AL 45.7 cm cubed LA Sys Volume Index AL 25.4 cm cubed/m squared Aorta at Sinotubular Diameter 2.4 cm IVC Diameter 2.1 cm M-MODE LA Ao Ratio MM 1.4 AV Cusp Separation MM 1.0 cm DOPPLER AV Peak Velocity 163.0 cm/s LVOT Peak Velocity 120.0 cm/s AV Area Cont Eq vti 2.5 cm squared AV Area Cont Eq pk 2.3 cm squared MV Peak Velocity 108.0 cm/s MV Area PHT 4.1 cm squared Mitral E to A Ratio 0.8 TR Peak Velocity 113.0 cm/s TR Peak Gradient 5.1 mmHg TV Peak E Velocity 54.0 cm/s PV Peak Velocity 167.0 cm/s FINDINGS Left Ventricle Normal left ventricular size, systolic function and wall thickness, with no regional wall motion abnormalities. Left ventricular ejection fraction is 61%. Grade I/IV diastolic dysfunction (abnormal relaxation filling pattern), normal to mildly elevated filling pressures. Right Ventricle Normal right ventricular size and systolic function. Normal right ventricular systolic function. Right Atrium Normal right atrial size. Left Atrium Normal left atrial size. Mitral Valve Moderate calcification of the anterior mitral valve leaflet which is chronic when compared to echocardiogram from 05/18/2021. Mild mitral valve regurgitation. No mitral valve stenosis. Aortic Valve Trileaflet aortic valve. Moderate calcification of the noncoronary cusp which is chronic compared to echocardiogram from 05/18/2021. No aortic valve stenosis. No aortic valve regurgitation. Tricuspid Valve Trace tricuspid valve regurgitation. Pulmonic Valve Trace pulmonary valve regurgitation. No pulmonary valve stenosis. Pericardium No pericardial effusion. Aorta Normal size aortic root and proximal ascending aorta. IVC Inferior vena cava not well visualized. CONCLUSIONS 1. Normal biventricular size and systolic function. Left ventricular EF 61%. 2. Chronic calcification of the noncoronary cusp of the aortic valve. No aortic valve stenosis of regurgitation. 3. Moderate calcification of the anterior mitral valve leaflet. No mitral valve stenosis. Mild mitral valve regurgitation. Mian Nieves MD, FACC (Electronically Signed) Final Date: 17 February 2025 18:11 S
== END 2025-02-14 07:24 | disposition home or self-care (01) ==
LOC: RAD 07:23
PROVIDERS: PCP Nurse Practitioner Family; Visit Provider Nurse Practitioner Family
DX: I38 Endocarditis, valve unspecified (principal); I10 Essential (primary) hypertension; I49.8 Other specified cardiac arrhythmias
CPT/HCPCS: 93306

== ENCOUNTER → 2025-02-20 10:05 | Outpatient (BNVA) | payer MEDICARE, SELFPAY | PROVIDERS: PCP Nurse Practitioner Family; Visit Provider Nurse Practitioner Family | DX: L90.0 Lichen sclerosus et atrophicus (principal); I10 Essential (primary) hypertension; E03.9 Hypothyroidism, unspecified; E55.9 Vitamin D deficiency, unspecified; E53.8 Deficiency of other specified B group vitamins; D64.9 Anemia, unspecified; Z79.899 Other long term (current) drug therapy | CPT/HCPCS: 80053; 80061; 81003; 82306; 82607; 82728; 82746; 83036; 83550; 84443; 85025 ==

== ENCOUNTER → 2025-03-26 07:52 | Outpatient (BNVA) | payer MEDICARE, SELFPAY | PROVIDERS: PCP Nurse Practitioner Family; Visit Provider Student in an Organized Health Care Education/Training Program | DX: M75.41 Impingement syndrome of right shoulder (principal) | CPT/HCPCS: 20610; 99213; J3301; J9999 ==

== ENCOUNTER 2025-03-27 12:13 | Outpatient (CLI) | payer MEDICARE, SELFPAY ==
--- NOTE | 2025-03-27 12:40 | MM_ITS ---
WS: [id number] BILATERAL 3D TOMOSYNTHESIS DIGITAL SCREENING MAMMOGRAPHY WITH CAD CLINICAL INFORMATION: Z12.31 - Encounter for screening mammogram for malignant ... HISTORY: Screening mammogram. No current complaints. COMPARISON: New baseline TECHNIQUE: Bilateral CC and MLO views. FINDINGS: Scattered fibroglandular densities bilaterally. No suspicious focal mass, asymmetry, calcifications, or architectural distortion. No evidence of malignancy. Punctate and lucent centered calcifications. Secretory calcifications. MM/MM [facility] tomosynthesis [id number] IMPRESSION: DENSITY: There are scattered areas of fibroglandular density. BI-RADS: 2 - Benign. FOLLOW UP: 1 Year Follow-up Recommend return to annual screening mammography.
== END 2025-03-27 12:14 | disposition home or self-care (01) ==
LOC: MOBLMAM 12:14
PROVIDERS: PCP Nurse Practitioner Family; Visit Provider Nurse Practitioner Family
DX: Z12.31 Encounter for screening mammogram for malignant neoplasm of breast (principal); R92.323 Mammographic fibroglandular density, bilateral breasts; R92.1 Mammographic calcification found on diagnostic imaging of breast
CPT/HCPCS: 77063; 77067